=== PATIENT | male | born 1950 | race Caucasian/White ===

== ENCOUNTER 2018-09-17 04:09 | Observation (INO) | payer MEDICARE, OTHER ==
[~2018-09-17] VITALS: Ht 180.3 cm; Wt 103.9 kg
[~2018-09-17 04:09] MED LIST: METO-391 PO; RIVA20TA PO; SIMV10TA6 PO
[2018-09-17] MEDS ORDERED: DILTIAZEM HCL 5 MG/ML 5 ML VIAL IVP ONE (05:04)
[2018-09-17 05:08] LABS: BASOPHILS % (AUTO) 0.6 % (0.0-5.0); EOSINOPHILS % (AUTO) 5.7 % (0.0-8.0); HEMATOCRIT 42.3 % (42-54); LYMPHOCYTES % (AUTO) 15.7 % (21.0-51.0); MEAN CORPUSCULAR HEMOGLOBIN 32.9 pg (27.0-33.0); MEAN CORPUSCULAR HGB CONC 35.3 g/dL (32.0-36.0); MEAN CORPUSCULAR VOLUME 93.1 fL (79-99); MONOCYTES % (AUTO) 8.4 % (3.0-13.0); NEUTROPHILS % (AUTO) 69.6 % (40.0-77.0); PLATELET COUNT (AUTO) 207 K/uL (130-400); RED BLOOD CELL COUNT(AUTO) 4.54 MIL/uL (4.50-6.20); RED CELL DISTRIBUTION WIDTH 13.7 % (11.0-15.5); WHITE BLOOD COUNT (AUTO) 5.9 K/uL (4.8-10.8)
[2018-09-17 05:16] LABS: INR 1.09 (0.85-1.15); PARTIAL THROMBOPLASTIN TIME 32.1 SEC (26.3-35.5); PROTHROMBIN TIME 11.4 SEC (9.6-11.6)
[2018-09-17 05:43] LABS: CREATININE 1.2 mg/dL (0.5-1.5)
[2018-09-17 05:52] LABS: BILIRUBIN,TOTAL 0.6 mg/dL (0.2-1.0); TOTAL PROTEIN, SERUM 7.7 g/dL (6.0-8.3)
[2018-09-17] MEDS ORDERED: METOPROLOL TARTRATE 25 MG TAB ONE (06:32)
[2018-09-17 06:40] LABS: APPEARANCE,URINE Clear (CLEAR); BILIRUBIN,URINE Negative (NEGATIVE); COLOR,URINE Yellow (YELLOW); GLUCOSE, URINE (UA) Negative (NEGATIVE); KETONES,URINE Negative (NEGATIVE); LEUKOCYTE ESTERASE ,URINE Negative (NEGATIVE); NITRATE,URINE Negative (NEGATIVE); OCCULT BLOOD,URINE Negative (NEGATIVE); PH,URINE 7.5 (5.0-8.0); PROTEIN,URINE Negative (NEGATIVE); UROBILINOGEN,URINE 0.2 mg/dL (0.2-1.0)
[2018-09-17] MEDS: METOPROLOL TARTRATE 25 MG TAB PO SCH ×2 (07:45→14:06)
[2018-09-17 07:47] VITALS: BP 116/79
--- NOTE | 2018-09-17 08:00 | NUR ---
RECEIVED FROM ED VIA STRETCHER. AAOX3, RESP.'S EVEN AND UNLABORED. DENIES ANY C/O SOB, DENIES ANY CURRENT PAIN. ORIENTED TO ROOM AND SURROUNDINGS. CALL LIGHT WITHIN REACH, VERBALIZED ABILITY TO USE. BED LOW, SIDE RAILS UP X2.
--- NOTE | 2018-09-17 08:05 | NUR ---
DR. RAMIRES IN ROOM SPEAKING WITH PT. RE:PLAN OF CARE AND ANSWERING QUESTIONS.
[2018-09-17] MEDS ORDERED: ONDANSETRON HCL 4 MG/2 ML VIAL IV PRN (08:15)
[2018-09-17] MEDS ORDERED: LACTULOSE 20 GM/30 ML UDCUP PO PRN (08:15)
[2018-09-17] MEDS ORDERED: HYDRALAZINE HCL 20 MG/ML VIAL IV PRN (08:15)
[2018-09-17] MEDS ORDERED: ACETAMINOPHEN 325 MG TAB PO PRN ×2 (08:15)
[2018-09-17] MEDS ORDERED: DILTIAZEM HCL 125 MG/25 ML 125 MG in SODIUM CHLORIDE 0.9% 100 ML IV PRN (08:30)
[2018-09-17] MEDS: SODIUM CHLORIDE 0.9% 1000ML 1,000 ML IV SCH ×2 (09:51→17:16)
[2018-09-17] MEDS: FAMOTIDINE/PF 20 MG/2 ML VIAL IV SCH ×2 (09:51→20:00)
[2018-09-17] MEDS ORDERED: DILTIAZEM 125MG+100 ML NS 125 ML IV SCH (10:19)
--- NOTE | 2018-09-17 11:00 | NUR ---
DR. Johny DOUGLASS IN ROOM SPEAKING WITH PT. RE:PLAN OF CARE. QUESTIONS ANSWERED BY DR. DOUGLASS.
[2018-09-17 11:54] VITALS: BP 144/92
--- NOTE | 2018-09-17 12:35 | NUR ---
DC PLAN PATIENT LIVES WITH SPOUSE. INDEPENDENT ABLE TO PERFORM ADL'S. PATIENT HAS NO SERVICES OR DME'S. CM WILL CONTINUE TO FOLLOW PATIENT IS A READMISSION. Addendum: 09/17/18 at 1238 by LANEY RAJAN RN CM Amended: Links added.
--- NOTE | 2018-09-17 16:05 | NUR ---
INFORMED BY VACUUM CLEANER REPAIRER, PT.'S TELEMETRY JUNCTIONAL RHYTHM-50'S. RESTING IN BED WITH HOB AT 30 DEGREES, RESP.'S EVEN AND UNLABORED. RICHI CERVANTES STOPPED. DENIES ANY C/O AT THIS TIME. CALL LIGHT WITHIN REACH, VERBALIZED ABILITY TO USE. BED LOW, SIDE RAILS UP. Addendum: 09/17/18 at 1950 by ELLY SHEFFIELD RN RN PT. ASYMPTOMATIC.
[2018-09-17 16:06] VITALS: BP 98/57
[2018-09-17 16:48] VITALS: BP 118/56
--- NOTE | 2018-09-17 18:11 | NUR ---
DR. Marissa PORTER AT NURSE'S STATION REVIEWING MEDICATION REGIMEN, RHYTHM STRIPS AND LATEST EKG.
--- NOTE | 2018-09-17 18:13 | NUR ---
DR. Marissa PORTER IN ROOM SPEAKING WITH PT.
[2018-09-17 19:31] VITALS: BP 121/61
[2018-09-17] MEDS: FLECAINIDE ACETATE 100 MG TABLET PO SCH (20:53)
[2018-09-17] MEDS ORDERED: RIVAROXABAN 20 MG TABLET PO SCH (21:00)
[2018-09-17 23:31] VITALS: BP 106/68
[2018-09-18 04:14] VITALS: BP 124/66
--- NOTE | 2018-09-18 07:15 | NUR ---
VERITO JENNINGS PA-C IS MAKING HIS ROUNDS. PLAN OF CARE DISCUSSED WITH PATIENT. ENCOURAGED TO AMBULATE. IF HEART RATE REMAINS STABLE, MAY BE D/C'D THIS AFTERNOON.
--- NOTE | 2018-09-18 07:24 | NUR ---
PATIENT IS AMBULATING ON THE HALLWAYS. TELE READS SINUS RHYTHM 66. NO C/O SOB NOR CHEST PAIN.
[2018-09-18 07:38] VITALS: BP 125/70
[2018-09-18] MEDS ORDERED: DILTIAZEM HCL 180 MG CAP.SR.24H PO SCH (09:00)
[2018-09-18] MEDS: FAMOTIDINE/PF 20 MG/2 ML VIAL IV SCH (09:01)
[2018-09-18] MEDS: FLECAINIDE ACETATE 100 MG TABLET PO SCH (09:01)
[2018-09-18] MEDS ORDERED: DILT180C63 PO (10:45)
[2018-09-18] MEDS ORDERED: FLEC50TA3 PO (10:45)
== END 2018-09-18 11:58 | disposition home or self-care (01) ==
LOC: EDH 04:09 → INTOOBSV 06:29 → EDHIP 06:29 → 2AH 07:40
PROVIDERS: ADMIT Internal Medicine; ATTEND Internal Medicine
DX: I48.0 Paroxysmal atrial fibrillation (principal); I48.92 Unspecified atrial flutter; E78.5 Hyperlipidemia, unspecified; Z79.01 Long term (current) use of anticoagulants; Z84.89 Family history of other specified conditions
CPT/HCPCS: 36415; 71045; 80053; 81003; 84484; 85025; 85610; 85730; 93005 ×3; 96365; 96366; 96375; 96376 ×2; 99291; A4600; G0378 ×29; J3490 ×5; J7030

== ENCOUNTER 2018-10-27 05:59 | Observation (INO) | payer MEDICARE, OTHER ==
[2018-10-22 16:22] LABS: BASOPHILS % (AUTO) 0.8 % (0.0-5.0); EOSINOPHILS % (AUTO) 8.5 % (0.0-8.0); MEAN CORPUSCULAR HEMOGLOBIN 31.8 pg (27.0-33.0); MEAN CORPUSCULAR HGB CONC 33.8 g/dL (32.0-36.0); MEAN CORPUSCULAR VOLUME 93.9 fL (79-99); MONOCYTES % (AUTO) 8.8 % (3.0-13.0); NEUTROPHILS % (AUTO) 53.9 % (40.0-77.0); PLATELET COUNT (AUTO) 254 K/uL (130-400); RED BLOOD CELL COUNT(AUTO) 4.58 MIL/uL (4.50-6.20); WHITE BLOOD COUNT (AUTO) 6.4 K/uL (4.8-10.8)
[2018-10-22 16:29] LABS: CREATININE 1.1 mg/dL (0.5-1.5); POTASSIUM 4.7 mmol/L (3.5-5.1)
[2018-10-22 16:32] LABS: PROTHROMBIN TIME 10.5 SEC (9.6-11.6)
[2018-10-22 16:38] VITALS: BP 168/85
[2018-10-27] VITALS (12 sets, daily range): BP systolic 99–169; BP diastolic 61–79
[~2018-10-27] VITALS: Ht 180.3 cm; Wt 107.5 kg
[~2018-10-27 05:59] MED LIST changes: -METO-391 PO; -SIMV10TA6 PO; +SIMV20TA6 PO; +SODIUM CHLORIDE 0.9% 1000ML 1,000 ML IV SCH
[2018-10-27] MEDS ORDERED: SODIUM CHLORIDE 0.9% 1000ML 1,000 ML IV ONE (06:05)
[2018-10-27] MEDS ORDERED: HEPARIN SODIUM 1000UNIT/ML 10ML VIAL ONE (07:22)
[2018-10-27] MEDS ORDERED: LIDOCAINE HCL 2% 20ML ONE (07:22)
[2018-10-27] MEDS ORDERED: MIDAZOLAM HCL 1 MG/ML 2ML VIAL ONE ×6 (07:23→09:31)
[2018-10-27] MEDS ORDERED: MEPERIDINE-PF 25 MG/ML SYG ONE ×6 (07:23→09:30)
--- NOTE | 2018-10-27 07:27 | NUR ---
PROCEDURE PT TAKEN TO EMULSION OPERATOR FOR AFLUTTER ABLATION VIA BED, NO DISTRESS NOTED FAMILY AT BEDSIDE
[2018-10-27] MEDS ORDERED: AMIODARONE HCL 50 MG/ML 3 ML VIAL ONE (09:02)
[2018-10-27] MEDS ORDERED: DRONEDARONE HYDROCHLORIDE 400 MG TABLET PO STA (10:57)
[2018-10-27] MEDS ORDERED: ENOXAPARIN SODIUM 100 MG/1 ML SQ SCH (11:00)
--- NOTE | 2018-10-27 11:00 | NUR ---
ARRIVAL TO FLOOR PT IS AAOX4 DENIES CP DENIES SOB DENIES NV NO COMPLAINTS. RIGHT GROIN DRESSING INTACT. NO OOZING NO HEMATOMA. BEDREST IN PROGRESS. ARRIVED WITH ORDERS, CALL LIGHT WITHIN REACH.
--- NOTE | 2018-10-27 14:00 | NUR ---
BEDREST COMPLETED RIGHT GROIN REMAINS WNL. PATIENT IN SITTING POSITION. NO COMPLAINTS.
[2018-10-27] MEDS ORDERED: ONDANSETRON HCL 4 MG/2 ML VIAL IVP PRN (19:30)
[2018-10-27] MEDS ORDERED: ACETAMINOPHEN 325 MG TAB PO PRN (19:30)
[2018-10-27] MEDS: DRONEDARONE HYDROCHLORIDE 400 MG TABLET PO SCH (21:32)
[2018-10-27] MEDS: FAMOTIDINE 20MG TAB 20 MG TAB PO SCH (21:32)
[2018-10-28] VITALS (10 sets, daily range): BP systolic 124–138; BP diastolic 60–80
--- NOTE | 2018-10-28 06:46 | NUR ---
R groin checked throughout the night. Soft no hematoma. Patient remained in SR. Consent for ablation signed. Patient NPO since midnight. Patient prepped for procedure
[2018-10-28] MEDS: FAMOTIDINE 20MG TAB 20 MG TAB PO SCH (09:00)
[2018-10-28] MEDS: DRONEDARONE HYDROCHLORIDE 400 MG TABLET PO SCH (09:22)
[2018-10-28] MEDS ORDERED: LIDOCAINE HCL 2% 20ML ONE ×2 (13:05→13:22)
[2018-10-28] MEDS ORDERED: HEPARIN SODIUM 1000UNIT/ML 10ML VIAL ONE (13:05)
[2018-10-28] MEDS ORDERED: MIDAZOLAM HCL 1 MG/ML 2ML VIAL ONE (13:33)
[2018-10-28] MEDS ORDERED: MEPERIDINE-PF 25 MG/ML SYG ONE (13:33)
--- NOTE | 2018-10-28 15:20 | NUR ---
NEW PRESCRIPTION FOR AMIODARONE 200MG 2 TABS PO DAILY # 60 CALLED IN TO PREFERRED PHARMACY, [facility] AT [facility]. SPOKE WITH ROSE MARY JOHNSTON.
[2018-10-28] MEDS ORDERED: AMIODARONE HCL 200 MG TABLET PO ONE (18:00)
--- NOTE | 2018-10-28 18:24 | NUR ---
DISCHARGE INSTRUCTION/INFORMATION GIVEN TO PATIENT AND . TEACH BACK METHOD USED TO EDUCATE PATIENT ABOUT NEW MEDICATION PRESCRIBED, S/S TO MONITOR, WHEN TO CALL MD,DIET, AND F/U APPOINTMENT. PATIENT VOICED THAT HE WILL HAVE TO CALL [facility] OFFICE TOMORROW HE WAS INSTRUCTED BY DR. PORTER TO F.U WITH HIM ON . INFORMED PATIENT THAT WE HAD TRIED TO MAKE SAID APPOINTMENT BUT NO AVAILABILITY AT THAT DATE. TELE REMOVED AND RETURNED. PIV REMOVED. TIP INTACT. ALL BELONGINGS WERE PACKED AND TAKEN HOME. HE WAS SAFELY WHEELED TO HIS PRIVATE VEHICLE BY MEEK JACK.
[2018-10-28] MEDS ORDERED: RIVAROXABAN 20 MG TABLET PO SCH (21:00)
== END 2018-10-28 18:33 | disposition home or self-care (01) ==
LOC: DAH 05:59 → DAHIP 06:00 → 2DH 11:36
PROVIDERS: ADMIT Internal Medicine; ATTEND Internal Medicine
DX: I48.91 Unspecified atrial fibrillation (principal); E78.5 Hyperlipidemia, unspecified; I45.9 Conduction disorder, unspecified; I48.92 Unspecified atrial flutter; I49.2 Junctional premature depolarization; Z86.73 Personal history of transient ischemic attack (TIA), and cerebral infarction without residual deficits; Z79.899 Other long term (current) drug therapy
CPT/HCPCS: 36415; 80048; 85025; 85610; 85730; 93005; 93613; 93621; 93653; 96372; A4606; A4649 ×2; C1730 ×4; C1732; C1894 ×4; G0378 ×32; J0282; J1644 ×3; J1650; J2175 ×7; J2250 ×6; J3490 ×3; J7030; 93620; 99156; 99157